=== PATIENT | female | born 1960 | race Caucasian/White ===

== ENCOUNTER → 2016-12-03 | Outpatient (CLI) | payer OTHER ==
[~2016-12-03] MED LIST: ACETAMINOPHEN650 M1 PO; BUPROPION XL300 MG PO; CIPRO PO; DISCONTINUED MED; FLEXERIL PO; LEVAQUIN PO; LEXAPRO; MULTI-VITAMIN1 TAB; PERCOCET5/325 PO; PYRIDIUM PO; WELLBUTRIN PO; ZOLOFT100 MG PO
--- NOTE | ~2016-12-03 | MY11 ---
[facility] A Service [facility] RADIOLOGY TEXT RESULTS PATIENT: TREY LEMONS LOCATION: [facility] : 56 UNIT #: [id number] AGE: [address]: Chloe De Paz MD SEX: F ORDER DR: [id number] [place] [address] [facility]. [place], [place] [address] [id number] MR#: [id number] Acc #: [id number] NAME: TREY LEMONS : 1960 SEX: F STUDY DATE/TIME: 12/03/2016 10:37 UNIT: [facility] ROOM: STUDY DESCRIPTION: MY Mammogram Screening Dig Justin Attending Physician: Chloe De Paz M.D. Ordering Physician: Chloe De Paz M.D. Primary Care Physician: Chloe De Paz M.D. MEDICAL IMAGING REPORT This report is preliminary unless electronic signature is present EXAM Screening mammogram 12/03 INDICATIONS 56-year-old with no personal history, but a positive family of breast cancer in mother. No current complaints. TECHNIQUE Routine digital screening views of both breasts were obtained. Study was reviewed with an FDA-approved CAD device. COMPARISON 03/12/2014, 11/10/2012 FINDINGS Breast parenchyma shows scattered fibroglandular densities. No new masses or suspicious microcalcifications are seen. The previously described benign nodule (shown to represent a cyst or cysts) it is slightly smaller in the medial right breast. Biopsy marker noted left breast. IMPRESSION Benign mammogram. Routine screen in 1 year recommended. Patient's over the age of 40 are entered into a reminder system with target due date for the next mammogram. A result letter will be sent to the patient. BIRADS: 2 Benign findings. Dictated by... Bandar Oscar Jr., M.D. [facility] A Service [facility] RADIOLOGY TEXT RESULTS PATIENT: TREY LEMONS LOCATION: [facility] : 56 UNIT #: [id number] AGE: [address]: Chloe De Paz MD SEX: F ORDER DR: THIS IS AN ELECTRONICALLY VERIFIED REPORT Bandar Oscar Jr., M.D. at 12/03/2016 5:00 PM BRENNAN/hayder TD: 12/03/2016 12:40 JOB #: [id number] MEDICAL IMAGING REPORT COPY
== END | disposition home or self-care (01) ==
LOC: CWCC 10:14
DX: Z12.31 Encounter for screening mammogram for malignant neoplasm of breast (principal); Z80.3 Family history of malignant neoplasm of breast; Z98.890 Other specified postprocedural states
CPT/HCPCS: G0202